=== PATIENT | female | born 1945 | race Caucasian/White ===

== ENCOUNTER 2017-07-20 08:26 | Day surgery (SDC) | payer MEDICARE, BC ==
[~2017-07-20 08:26] MED LIST: Acetaminophen TAB* 325 MG PO PRN; Buffered Lidocaine 0.9% SYRIN* 5 ML/SYR SYRINGE INTRADERM ONE
[2017-07-20] MEDS ORDERED: Midazolam* 1 MG/ML 2 ML VIAL (2 MG) ONE ×2 (10:38→10:46)
[2017-07-20 11:26] VITALS: BP 113/54
[2017-07-20] MEDS ORDERED: Neomycin/Polymy/Dex OPTH.SUSP* MAXITROL 0.1% 5 ML ONE (13:23)
[2017-07-20] MEDS ORDERED: Lidocaine 2% EPI 1:200000 MPF*10-20 ML VIAL ONE (13:23)
[2017-07-20] MEDS ORDERED: Lidocaine 1% MPF* 2 ML VIAL ONE (13:23)
[2017-07-20] MEDS ORDERED: Ketorolac 0.5% OPHTH (NF) 0.5 % 5 ML BTL ONE (13:23)
[2017-07-20] MEDS ORDERED: Cyclopentolate 1% OPTH.SOL* 2 ML BTL ONE (13:23)
[2017-07-20] MEDS ORDERED: Proparacaine 0.5% OPHTH.SOL* 15 ML BTL ONE (13:23)
[2017-07-20] MEDS ORDERED: Povidone Iodine 5% OPTH* 30 ML BTL ONE (13:23)
[2017-07-20] MEDS ORDERED: Phenylephrine 2.5% OPTH.SOL* 2 ML BTL ONE (13:23)
--- NOTE | 2017-07-21 05:55 | OP ---
DATE OF OPERATION: 07/20/17 - [facility] DATE OF : 47 SURGEON: Slade Middleton M.D. PREOPERATIVE DIAGNOSIS: Cataract, left eye POSTOPERATIVE DIAGNOSIS: Cataract, left eye OPERATIVE PROCEDURE: Extracapsular cataract extraction with intraocular lens implant left eye. DESCRIPTION OF PROCEDURE: The patient was brought to the operating room after being given 1/2% Alcaine with epinephrine drops in the preoperative area. The eye was prepped and draped in the usual sterile fashion. Sterile drape and eyelid speculum were placed. Again, topical 1/2% Alcaine with epinephrine was given. A paracentesis incision was made at the 3 o'clock position with the No.75 blade. Clear cornea incision 2.2 x 2.2-mm was created at the 6 o'clock position starting at the anterior limbus using the 2.2-mm keratome. The anterior chamber was irrigated with 0.4 mL of 1% non-preservative intracameral lidocaine and filled with DisCoVisc. A capsulorrhexis was completed using the cystotome and the Utrata forceps. Hydrodissection was performed with balanced salt solution. The lens nucleus was removed with the Phacoemulsification handpiece without incident. Cortex was removed with the irrigation-aspiration handpiece. The capsular bag was re-inflated using DisCoVisc and an [id number] implant was inserted with the shooter. The irrigation-aspiration handpiece was used to remove all residual DisCoVisc. The eye was refilled with balanced salt solution and the wound checked and found to be watertight. Topical Maxitrol drops were given. [id number]/[facility] #: [id number] [facility]
== END 2017-07-20 11:23 | disposition home or self-care (01) ==
LOC: OREAST 08:26
PROVIDERS: ATTEND Specialist
DX: H25.12 Age-related nuclear cataract, left eye (principal); H02.402 Unspecified ptosis of left eyelid; D31.32 Benign neoplasm of left choroid; I10 Essential (primary) hypertension; I42.8 Other cardiomyopathies; E78.2 Mixed hyperlipidemia; E89.0 Postprocedural hypothyroidism; Z87.891 Personal history of nicotine dependence; Z79.82 Long term (current) use of aspirin; F41.9 Anxiety disorder, unspecified; G43.909 Migraine, unspecified, not intractable, without status migrainosus
CPT/HCPCS: A9270-GY; J2250; V2788

== ENCOUNTER 2017-07-27 09:09 | Day surgery (SDC) | payer MEDICARE, BC ==
[~2017-07-27 09:09] MED LIST changes: +Cyclopentolate 1% OPTH.SOL* 2 ML BTL ONE; +Ketorolac 0.5% OPHTH (NF) 0.5 % 5 ML BTL ONE; +Lidocaine 1%* 5 ML VIAL ONE; +Lidocaine 2% EPI 1:200000 MPF*10-20 ML VIAL ONE; +Neomycin/Polymy/Dex OPTH.SUSP* MAXITROL 0.1% 5 ML ONE; +Phenylephrine 2.5% OPTH.SOL* 2 ML BTL ONE; +Povidone Iodine 5% OPTH* 30 ML BTL ONE; +Proparacaine 0.5% OPHTH.SOL* 15 ML BTL ONE; +acetaZOLAMIDE TAB* 250 MG ONE
[2017-07-27] MEDS ORDERED: Midazolam* 1 MG/ML 5 ML VIAL (5 MG) ONE (12:02)
[2017-07-27] MEDS ORDERED: fentaNYL* 50 MCG/ML 2 ML VIAL (100 MCG VIAL) ONE (12:33)
[2017-07-27 12:49] VITALS: BP 103/85
--- NOTE | 2017-07-28 08:52 | OP ---
DATE OF OPERATION: 07/27/17 [facility] DATE OF : 47 SURGEON: Slade Middleton M.D. PREOPERATIVE DIAGNOSIS: Cataract, right. POSTOPERATIVE DIAGNOSIS: Cataract, right. OPERATIVE PROCEDURE: Extracapsular cataract extraction with IOL, intraocular lens implant right eye. DESCRIPTION OF PROCEDURE: The patient was brought to the operating room after being given 1/2% Alcaine with epinephrine drops in the preoperative area. The eye was prepped and draped in the usual sterile fashion. Sterile drape and eyelid speculum were placed. Again, topical 1/2% Alcaine with epinephrine was given. A paracentesis incision was made at the 9 o'clock position with the No.75 blade. Clear cornea incision 2.2 x 2.2-mm was created at the 12 o'clock position starting at the anterior limbus using the 2.2-mm keratome. The anterior chamber was irrigated with 0.4 mL of 1% non-preservative intracameral lidocaine and filled with DisCoVisc. A capsulorrhexis was completed using the cystotome and the Utrata forceps. Hydrodissection was performed with balanced salt solution. The lens nucleus was removed with the Phacoemulsification handpiece without incident. Cortex was removed with the irrigation-aspiration handpiece. The capsular bag was re-inflated using DisCoVisc and an [id number] implant was inserted with the shooter and oriented to the 155-degree meridian. Horizontal reference barrett with the patient in a seated position in the preoperative area. The irrigation-aspiration handpiece was used to remove all residual DisCoVisc. The eye was refilled with balanced salt solution and the wound checked and found to be watertight. Topical Maxitrol drops were given. [id number]/[facility] #: [id number] [facility]
== END 2017-07-27 13:08 | disposition home or self-care (01) ==
LOC: OREAST 09:09
PROVIDERS: ATTEND Specialist
DX: H25.11 Age-related nuclear cataract, right eye (principal); H02.402 Unspecified ptosis of left eyelid; D31.32 Benign neoplasm of left choroid; I10 Essential (primary) hypertension; E78.2 Mixed hyperlipidemia; E89.0 Postprocedural hypothyroidism; I42.2 Other hypertrophic cardiomyopathy; F41.9 Anxiety disorder, unspecified
CPT/HCPCS: A9270-GY; J2250; J3010

== ENCOUNTER 2019-05-02 12:13 | Emergency (ER) | payer MEDICARE, BC ==
--- OUTSIDE RECORDS SUMMARY | 2019-05-02 12:50 | XMS REPORT | Summary of Care ---
:1945 Author Organization [facility] Address [address] [place] [address] Care Team Providers Name Role Phone Luis Bridges MD Primary Care Provider Encounter Details Date Type Department Care Team Description 03/22/2019 Hospital Encounter [facility] Pathology Hypertrophic obstructive Laboratory and PSC at [facility] [address] [facility] [address] [place] [address] Allergies Active Allergy Reactions Severity Noted Date Comments Bactrim Other (See Comments) 08/04/2011 Hypotension, rash Lamotrigine Rash Low 05/07/2013 confusion Sulfamethoxazole-Trimetho 05/20/2014 prim Tetracyclines & Related Swelling 08/04/2011 Tongue Tongue documented as of this encounter (statuses as of 03/23/2019) Medications Medication Sig Dispensed Refills Start Date End Date Status nortriptyline (PAMELOR) 50 Take 50 mg by 0 Active MG capsule mouth nightly 25-50 mg QPM Cholecalciferol (VITAMIN Take 1,000 0 Active D) 1000 UNITS tablet Units by mouth daily. polycarbophil (FIBERCON) Take 625 mg by 0 Active 625 MG tablet mouth daily. Multiple Vitamin (DAILY Take 1 tablet 0 Active PIERRE) per tablet by mouth daily. Calcium Citrate-Vitamin D Take 600 mg by 0 Active (CALCIUM CITRATE + PO) mouth Two Times Daily vitamin B-12 Take 250 mcg 0 Active (CYANOCOBALAMIN) 100 MCG by mouth daily tablet Biotin 1 MG CAPS Take 1 tablet 0 Active by mouth daily Cranberry 1000 MG CAPS Take 1 capsule 0 Active by mouth daily diltiazem (TIAZAC) 180 MG TAKE 1 CAPSULE 90 capsule 3 08/03/2018 Active 24 hr capsule BY MOUTH DAILY 0 buPROPion (WELLBUTRIN SR) TAKE 1 TABLET 180 tablet 3 08/09/2018 Active 200 MG 12 hr tablet BY MOUTH TWICE DAILY losartan (COZAAR) 100 MG TAKE 1 TABLET 90 tablet 1 10/16/2018 Active tablet BY MOUTH DAILY spironolactone (ALDACTONE) TAKE 1 TABLET 90 tablet 3 11/30/2018 Active 25 MG tablet BY MOUTH EVERY DAY Levothyroxine Sodium 150 Take 150 mcg 90 tablet 3 02/14/2019 Active MCG Oral Tablet every Tuesday, (SYNTHROID, , LEVOTHROID)Indications: Tuesday and Postoperative Tuesday hypothyroidism Levothyroxine Sodium 137 Take 137 mcg 50 tablet 3 02/14/2019 Active MCG Oral Tablet every Tuesday, (SYNTHROID, Tuesday and LEVOTHROID)Indications: Tuesday Postoperative hypothyroidism Atorvastatin Calcium 40 MG Take 1 tablet 90 tablet 3 02/14/2019 Active Oral Tablet by mouth every 0 (LIPITOR)Indications: evening Hypercholesterolemia Furosemide 20 MG Oral Take 1 tablet 30 tablet 11 03/22/2019 Active Tablet (LASIX) by mouth daily 1 as needed documented as of this encounter (statuses as of 03/23/2019) Active Problems Problem Noted Date Migraine 08/30/2018 Melanoma in situ 03/23/2018 IPMN (intraductal papillary mucinous neoplasm) 05/16/2017 Overview: MRI 2010 and 2017 unchanged recommend MRI 2019 Hypertrophic obstructive cardiomyopathy 08/31/2015 Overview: Overview: Dr Cintron S/P bariatric surgery 10/21/2014 Overview: Gastric sleeve ([facility]) 10/21/2014 Initially lost 40 lbs but re-gained much of it Hepatic steatosis 04/25/2013 Overview: Noted on ultrasound 04/25/2013 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 related to recurrent pancreatitis 08/12/2015 Triglyceride 209, HDL 46, LDL 95 Postoperative hypothyroidism Overview: S/P left lobectomy (nodule) 1977 There is not a history of irradiation to the head or neck. No LANDIN 08/12/2015 TSH 1.33 Obesity due to excess calories Obstructive sleep apnea hypopnea, mild Overview: Lost weight and no longer uses Osteopenia of spine Overview: Bone mineral density 01/2006 T scores LS spine -1.4, hip +0.2 01/07/2012 -1.6 -1.1 Bone density T scores 11/24/2016: L1-L4 -1.4, (L4 -2.0), left neck -0.9, right neck -1.1, total left -0.1, total right -0.5, left forearm -0.6 Lumbar spine xray: small degree of grade 1 anterolisthesis of L4 over L5 since 01/2012 CT scan Diverticulosis Internal hemorrhoids Depression Malignant melanoma of left lower extremity including hip Overview: Removed September, (lower leg) documented as of this encounter (statuses as of 03/23/2019) Resolved Problems Problem Noted Date Resolved Date Preop cardiovascular exam 07/13/2017 09/20/2018 Idiopathic acute pancreatitis 11/27/2015 07/13/2017 Hair loss 11/24/2015 07/13/2017 History of breast biopsy 01/04/2013 05/16/2017 Dyspepsia 02/08/2012 05/16/2017 Gastritis and duodenitis 02/08/2012 05/16/2017 Lipoma of small intestine 02/08/2012 05/16/2017 Abdominal pain 08/13/2011 05/16/2017 documented as of this encounter (statuses as of 03/23/2019) Immunizations Name Administration Dates Next Due Influenza Quad IM Pres Free (0.5 mL 02/04/2017 dose) Influenza Tri High Dose IM Pres Free 01/12/2019, 12/03/2018, 12/05/2017, >=65YO (FLUZONE HD) 02/05/2016 Pneumococcal Conjugate PCV13 07/08/2014 Pneumococcal Polysaccharide PPV23 07/09/2015 Tdap 07/15/2017 Zoster (Shingles) Live (ZOSTAVAX) 07/08/2016 Zoster (Shingles) Recombinant 06/16/2018, 01/24/2018 (SHINGRIX) documented as of this encounter Social History Tobacco Use Types Packs/Day Years Used Date Former Smoker Cigarettes 0.33 15 Quit: 11/11/2010 Smokeless Tobacco: Never Used Alcohol Use Drinks/Week oz/Week Comments Yes 0-1 Glasses of wine 0.0 maybe 1 glass of wine monthly Alcohol Habits Answer Date Recorded How often do you have a drink containing alcohol? Monthly or less 01/18/2019 How many drinks containing alcohol do you have on a 1 or 2 01/18/2019 typical day when you are drinking? How often do you have six or more drinks on one Never 01/18/2019 occasion? Sex Assigned at Date Recorded Not on file Job Start Date Occupation Industry Not on file Not on file Not on file Travel History Travel Start Travel End No recent travel history available. documented as of this encounter Last Filed Vital Signs Not on filedocumented in this encounter Plan of Treatment Date Type Specialty Care Team Description 04/11/2019 Appointment Radiology 05/29/2019 Procedure visit Gastroenterology Joby Thompson MD [address] [place] [address] [phone] 09/19/2019 Office Visit Internal Medicine Luis Bridges MD [address] [facility] [place] [address] [place] [address] [phone] 11/28/2019 Office Visit Endocrinology Maddie Miles MD [address] [place], [place] [id number] 01/17/2020 Office Visit Cardiology Slade Cintron MD [address] [place] [address] [phone] Health Maintenance Due Date Last Done Comments Osteoporosis Screening 2 2011 yr Breast Cancer Screening 2 03/16/2019 03/16/2017, 03/16/2017, years 03/17/2016, Additional history exists Colon Cancer Screening 10 10/27/2026 10/27/2016 yrs DTaP,Tdap,and Td Vaccines 07/16/2027 07/15/2017, 07/14/2017, (6 - Td) 04/25/2015, Additional history exists MMR Vaccines Discontinued 07/23/2009 Hepatitis A Vaccines Discontinued 04/02/2010, 07/23/2009 IPV Vaccines Aged Out 08/15/2014 No longer eligible based on patient's age to complete this topic Pneumococcal Vaccine: 65+ Completed 07/09/2015, 07/08/2014 Years Pneumococcal Vaccine: Aged Out 07/09/2015, 07/08/2014 No longer eligible Pediatrics (0 to 5 Years) based on patient's age and At-Risk Patients (6 to to complete this topic 64 Years) Hepatitis C Screening (B. Completed 07/08/2016 [id number]) Varicella Vaccines Discontinued 06/16/2018, 02/02/2018, 01/24/2018, Additional history exists Zoster Vaccines Completed 06/16/2018, 02/02/2018, 01/24/2018, Additional history exists Influenza Vaccine Completed 01/12/2019, 12/03/2018, 12/05/2017, Additional history exists HIB Vaccines Aged Out No longer eligible based on patient's age to complete this topic Hepatitis B Vaccines Aged Out No longer eligible based on patient's age to complete this topic documented as of this encounter Goals Goal Patient Goal Associated Recent Patient-Stated? Author Type Problems Progress Weight (lb) < Weight 82.6 kg (182 No Fingar, 90.7 kg (200 lb) Shanda lb) (03/22/2019 3:12 PM EST) documented as of this encounter Procedures Procedure Name Priority Date/Time Associated Diagnosis Comments TSH Routine 03/22/2019 3:57 Hypertrophic Results for this PM EST obstructive procedure are in cardiomyopathy the results section. T4, FREE Routine 03/22/2019 3:57 Hypertrophic Results for this PM EST obstructive procedure are in cardiomyopathy the results section. COMPREHENSIVE Routine 03/22/2019 3:57 Hypertrophic Results for this METABOLIC PANEL PM EST obstructive procedure are in cardiomyopathy the results section. documented in this encounter Results Comprehensive Metabolic Panel (03/22/2019 3:57 PM EST) Albumin 4.8 3.5 - 5.2 g/dL [facility] Pathology Bilirubin, Total 0.3 <1.2 mg/dL [facility]ology Calcium 10.3 (H) 8.8 - 10.2 [facility] mg/dL [facility] Pathology Chloride 96 (L) 98 - 107 mmol/L [facility]ology Creatinine 0.90 0.50 - 0.90 [facility] mg/dL [facility] Glucose 82 70 - 140 mg/dL [facility]ology Alkaline Phosphatase 92 35 - 104 U/L [facility]ology Potassium 5.0 3.4 - 5.1 [facility] mmol/L [facility] Pathology Total Protein 7.1 6.4 - 8.3 g/dL [facility]ology Sodium 134 (L) 136 - 145 [facility] mmol/L [facility] AST/SGO 22 <32 U/L [facility]ology Blood Urea Nitrogen 20 8 - 23 mg/dL [facility]ology Osmolality, Vivek 279 275 - 300 [facility] mosm/kg [facility] BUN/Cre Ratio 22 [facility] Bicarbonate 25 22 - 29 mmol/L [facility] ALT/SGP 29 <33 U/L [facility] Anion Gap 13 8 - 15 mmol/L [facility] A/G Ratio 2.1 [facility]ology GFR Non 62 >60 [facility] Ecuadorean 2008 CDK-EPI mL/min/1.73m2 [facility] GFR 72 >60 [place] [address] CKD-EPI mL/min/1.73m2 [facility] Pathology Specimen Plasma Performing Organization Address City/[facility] Phone Number [facility] [address] [place] [address] [phone] [facility] [address] [place] [address] Pathology T4, free (03/22/2019 3:57 PM EST) Free Thyroxine 1.60 0.93 - 1.70 ng/dL [facility] Pathology Specimen Plasma Performing Organization Address [facility] Phone Number [facility] [address] [place] [address] [facility] [address] [place] [address] Pathology TSH (03/22/2019 3:57 PM EST) TSH 2.250 0.270 - 4.200 u[IU]/mL [facility] Pathology Specimen Plasma Performing Organization Address [facility]ode Phone Number [facility] [address] [place] [address] [facility] [address] [place] [address] Pathology documented in this encounter Visit Diagnoses Diagnosis Hypertrophic obstructive cardiomyopathy documented in this encounter
--- OUTSIDE RECORDS SUMMARY | 2019-05-02 12:50 | XMS REPORT | Summary of Care ---
:1945 Author Organization [facility] Address [address] [place] [address] Care Team Providers Name Role Phone Luis Bridges MD Primary Care Provider Reason for Referral Diagnostic Radiology (Routine) Status Reason Specialty Diagnoses / Referred By Referred To Procedures Contact Contact Authorized Radiology Diagnoses Pancreatic cyst Arif, Hemphill O, Procedures MR Abdomen with and without Contrast [address] [facility] [address] [place] [id number] Email: [email or web address] Reason for Visit Diagnostic Radiology (Routine) Status Reason Specialty Diagnoses / Referred By Referred To Procedures Contact Contact Authorized Radiology Diagnoses Pancreatic cyst Arif, Hemphill O, Procedures MR Abdomen with and without Contrast [address] [facility] [address] [place] [address] Email: [email or web address] Encounter Details Date Type Department Care Team Description 04/11/2019 Hospital Encounter MRI [id number] Pancreatic cyst [address] [place] [id number] Allergies Active Allergy Reactions Severity Noted Date Comments Bactrim Other (See Comments) 08/04/2011 Hypotension, rash Lamotrigine Rash Low 05/07/2013 confusion Sulfamethoxazole-Trimetho 05/20/2014 prim Tetracyclines & Related Swelling 08/04/2011 Tongue Tongue documented as of this encounter (statuses as of 04/12/2019) Medications Medication Sig Dispensed Refills Start Date [...] as of this encounter (statuses as of 04/12/2019) Active Problems Problem Noted Date Migraine 08/30/2018 Melanoma in situ 03/23/2018 IPMN (intraductal papillary mucinous neoplasm) 05/16/2017 Overview: MRI 2010 and 2017 unchanged recommend MRI 2019 Hypertrophic obstructive cardiomyopathy 08/31/2015 Overview: Overview: Dr Cintron S/P bariatric surgery 10/21/2014 Overview: Gastric sleeve ([facility]) 10/21/2014 Initially lost 40 lbs but re-gained [...] as of this encounter (statuses as of 04/12/2019) Resolved Problems Problem Noted Date Resolved Date Preop cardiovascular exam 07/13/2017 09/20/2018 Idiopathic acute pancreatitis 11/27/2015 07/13/2017 Hair loss 11/24/2015 07/13/2017 History of breast biopsy 01/04/2013 05/16/2017 Dyspepsia 02/08/2012 05/16/2017 Gastritis and duodenitis 02/08/2012 05/16/2017 Lipoma of small intestine 02/08/2012 05/16/2017 Abdominal pain 08/13/2011 05/16/2017 documented as of this encounter (statuses as of 04/12/2019) Immunizations Name Administration Dates Next Due Influenza [...] Treatment Date Type Specialty Care Team Description 05/29/2019 Procedure visit Gastroenterology Joby Thompson MD [address] [facility] [address] [place] [address] [phone] 09/19/2019 Office Visit Internal Medicine Luis Bridges MD [address] [facility] [place] [address] [place] [address] [phone] 11/28/2019 Office Visit Endocrinology Maddie Miles MD [address] [place] [address] [phone] 01/17/2020 Office Visit Cardiology Slade Cintron MD [address], [address] [place] [address] [phone] Name Type Priority Associated Diagnoses Date/Time MR Abdomen with and Imaging Routine Pancreatic cyst 04/11/2019 3:08 PM EST without Contrast Name Type Priority Associated Diagnoses Order Schedule MR Abdomen with and Imaging Routine Pancreatic cyst As Needed for 1 without Contrast Occurrences starting 04/11/2019 until 04/11/2019 Health Maintenance Due Date Last Done Comments [...] Years) Hepatitis C Screening (B. Completed 07/08/2016 [id number]) Varicella Vaccines Discontinued 06/16/2018, 02/02/2018, 01/24/2018, Additional [...] PM EST) documented as of this encounter Results Not on filedocumented in this encounter Visit Diagnoses Diagnosis Pancreatic cyst Cyst and pseudocyst of pancreas documented in this encounter Administered Medications Medication Order MAR Action Action Date Dose Rate Site gadobutrol (GADAVIST) contrast Given 04/11/2019 3:00 PM EST 7 mLs injection 8 mL 8 mL (rounded from 8.26 mL = 0.1 mL/kg 82.6 kg), Intravenous, 1 TIME IMAGING, 04/11/19 at 1500, For 1 dose, Imaging Protocol, Do not mix or administer in the same IV line with other medications., glucagon (human recombinant) Given 04/11/2019 2:33 PM EST 1 mg Left Deltoid (GLUCAGEN) injection 1 mg 1 mg, Intramuscular, 1 TIME IMAGING, 04/11/19 at 1430, For 1 dose documented in this encounter
--- OUTSIDE RECORDS SUMMARY | 2019-05-02 12:50 | XMS REPORT | Summary of Care ---
:1945 Author Organization [facility] Address [address] [place] [address] Care Team Providers Name Role Phone Luis Bridges MD Primary Care Provider Reason for Visit Reason Comments Annual Exam Encounter Details Date Type Department Care Team Description 03/22/[address] [facility], [facility] menopausal state (Primary Dx); Internists Luis Castillo MD Reactive depression; [address] [facility] [address] [facility] Essential hypertension; [address] Gastroesophageal reflux disease without esophagitis; [place], [place] Hepatic steatosis; [id number] Hypercholesterolemia; [phone] Hypertrophic obstructive cardiomyopathy; [phone] IPMN (intraductal papillary mucinous neoplasm); (Fax) Obstructive sleep apnea hypopnea, mild; Postoperative hypothyroidism; S/P bariatric surgery Allergies Active Allergy Reactions Severity Noted Date Comments Bactrim Other (See Comments) 08/04/2011 Hypotension, rash Lamotrigine Rash Low 05/07/2013 confusion Sulfamethoxazole-Trimetho 05/20/2014 prim Tetracyclines & Related Swelling 08/04/2011 Tongue Tongue documented as of this encounter (statuses as of 04/08/2019) Medications Medication Sig Dispensed Refills Start End Status Date Date nortriptyline (PAMELOR) Take 50 mg 0 Active 50 MG capsule by mouth nightly 25-50 mg QPM Cholecalciferol (VITAMIN Take 1,000 0 Active D) 1000 UNITS tablet Units by mouth daily. polycarbophil (FIBERCON) Take 625 mg 0 Active 625 MG tablet by mouth daily. Multiple Vitamin (DAILY Take 1 0 Active PIERRE) per tablet tablet by mouth daily. Calcium Citrate-Vitamin Take 600 mg 0 Active D (CALCIUM CITRATE + PO) by mouth Two Times Daily vitamin B-12 Take 250 mcg 0 Active (CYANOCOBALAMIN) 100 MCG by mouth tablet daily Biotin 1 MG CAPS Take 1 0 Active tablet by mouth daily Cranberry 1000 MG CAPS Take 1 0 Active capsule by mouth daily diltiazem (TIAZAC) 180 TAKE 1 90 capsule 3 08/03/ Active MG 24 hr capsule CAPSULE BY 19 020 MOUTH DAILY buPROPion (WELLBUTRIN TAKE 1 180 tablet 3 08/10/19 Active SR) 200 MG 12 hr tablet TABLET BY 19 MOUTH TWICE DAILY losartan (COZAAR) 100 MG TAKE 1 90 tablet 1 10/17/19 Active tablet TABLET BY 19 MOUTH DAILY spironolactone TAKE 1 90 tablet 3 12/01/19 Active (ALDACTONE) 25 MG tablet TABLET BY 19 MOUTH EVERY DAY Levothyroxine Sodium 150 Take 150 mcg 90 tablet 3 02/15/20 Active MCG Oral Tablet every 19 (SYNTHROID, Tuesday, LEVOTHROID)Indications: , Postoperative Tuesday and hypothyroidism Tuesday Levothyroxine Sodium 137 Take 137 mcg 50 tablet 3 02/15/20 Active MCG Oral Tablet every 19 (SYNTHROID, Tuesday, LEVOTHROID)Indications: Tuesday Postoperative and Tuesday hypothyroidism Atorvastatin Calcium 40 Take 1 90 tablet 3 02/15/20 Active MG Oral Tablet tablet by 19 020 (LIPITOR)Indications: mouth every Hypercholesterolemia evening Furosemide 20 MG Oral Take 1 30 tablet 11 03/22/19 Active Tablet (LASIX) tablet by 20 021 mouth daily as needed Famotidine 20 MG Oral Take 1 180 tablet 1 01/23/20 Discontinued Tablet tablet by 020 (Therapy (PEPCID)Indications: mouth Two completed) Gastroesophageal reflux Times Daily disease without esophagitis Hydroquinone 4 % APPLY ON 0 12/23/19 Discontinued External Cream BROWN SPOTS (Therapy ONLY completed) documented as of this encounter (statuses as of 04/08/2019) Active Problems Problem Noted Date Migraine 08/30/2018 Melanoma in situ 03/23/2018 IPMN (intraductal papillary mucinous neoplasm) 05/16/2017 Overview: MRI 2010 and 2018 unchanged recommend MRI 2019 Hypertrophic obstructive cardiomyopathy 08/31/2015 Overview: Overview: Dr Cintron S/P bariatric surgery 10/21/2014 Overview: Gastric sleeve ([facility]) 10/21/2014 Initially lost 40 lbs but [...] as of this encounter (statuses as of 04/08/2019) Resolved Problems Problem Noted Date Resolved Date Preop cardiovascular exam 07/13/2017 09/20/2018 Idiopathic acute pancreatitis 11/27/2015 07/13/2017 Hair loss 11/24/2015 07/13/2017 History of breast biopsy 01/04/2013 05/16/2017 Dyspepsia 02/08/2012 05/16/2017 Gastritis and duodenitis 02/08/2012 05/16/2017 Lipoma of small intestine 02/08/2012 05/16/2017 Abdominal pain 08/13/2011 05/16/2017 documented as of this encounter (statuses as of 04/08/2019) Immunizations Name Administration Dates Next Due Influenza [...] of this encounter Last Filed Vital Signs Vital Sign Reading Time Taken Comments Blood Pressure 112/60 03/22/2019 3:12 PM EST Pulse 74 03/22/2019 3:12 PM EST Temperature 36.4 03/22/2019 3:12 PM EST C (97.6 F) Respiratory Rate 16 03/22/2019 3:12 PM EST Oxygen Saturation 99% 03/22/2019 3:12 PM EST Inhaled Oxygen Concentration - - Weight 82.6 kg (182 lb) 03/22/2019 3:12 PM EST Height 154.9 cm (5' 1") 03/22/2019 3:12 PM EST Body Mass Index 34.39 03/22/2019 3:12 PM EST documented in this encounter Progress Notes Gordon Verdugo - 03/22/2019 3:00 PM EST Subjective: Patient ID: Viviana Holden is a 74 y.o. female Viviana Holden is a 74 y.o. female with the following Problems and Medications. Patient Active Problem List Diagnosis GERD (gastroesophageal reflux disease) Cyst and pseudocyst of pancreas Essential hypertension Right knee DJD Hypertrophic obstructive cardiomyopathy Hypercholesterolemia Postoperative hypothyroidism Obesity due to excess calories Obstructive sleep apnea hypopnea, mild Osteopenia of spine Hepatic steatosis Diverticulosis Internal hemorrhoids Depression S/P bariatric surgery IPMN (intraductal papillary mucinous neoplasm) Malignant melanoma of left lower extremity including hip Migraine Melanoma in situ Current Outpatient Medications Medication Sig Dispense Refill Atorvastatin Calcium 40 MG Oral Tablet (LIPITOR) Take 1 tablet by mouth every evening 90 tablet 3 Biotin 1 MG CAPS Take 1 tablet by mouth daily buPROPion (WELLBUTRIN SR) 200 MG 12 hr tablet TAKE 1 TABLET BY MOUTH TWICE DAILY 180 tablet 3 Calcium Citrate-Vitamin D (CALCIUM CITRATE + PO) Take 600 mg by mouth Two Times Daily Cholecalciferol (VITAMIN D) 1000 UNITS tablet Take 1,000 Units by mouth daily. Cranberry 1000 MG CAPS Take 1 capsule by mouth daily diltiazem (TIAZAC) 180 MG 24 hr capsule TAKE 1 CAPSULE BY MOUTH DAILY 90 capsule 3 Levothyroxine Sodium 137 MCG Oral Tablet (SYNTHROID, LEVOTHROID) Take 137 mcg every Tuesday, Tuesday and Tuesday 50 tablet 3 Levothyroxine Sodium 150 MCG Oral Tablet (SYNTHROID, LEVOTHROID) Take 150 mcg every Tuesday, , Tuesday and Tuesday 90 tablet 3 losartan (COZAAR) 100 MG tablet TAKE 1 TABLET BY MOUTH DAILY 90 tablet 1 Multiple Vitamin (DAILY PIERRE) per tablet Take 1 tablet by mouth daily. nortriptyline (PAMELOR) 50 MG capsule Take 50 mg by mouth nightly 25-50 mg QPM polycarbophil (FIBERCON) 625 MG tablet Take 625 mg by mouth daily. spironolactone (ALDACTONE) 25 MG tablet TAKE 1 TABLET BY MOUTH EVERY DAY 90 tablet 3 vitamin B-12 (CYANOCOBALAMIN) 100 MCG tablet Take 250 mcg by mouth daily Furosemide 20 MG Oral Tablet (LASIX) Take 1 tablet by mouth daily as needed 30 tablet 11 No current facility-administered medications for this visit. HPI Her family history includes Cancer (age of onset: 62) in her cousin; Cancer ( age of onset: 93) in her mother; Dementia in her mother; Diabetes type II in her paternal aunt; Heart disease in her father;Hypertension in her mother; Other in her father; Stroke in her mother; Urolithiasis in her son. Viviana reports that she quit smoking about 8 years ago. Her smoking use included cigarettes. She has a 4.95 pack-year smoking history. She has never used smokeless tobacco. She reports current alcohol use. She reports that she does not use drugs. Patient in seen for her annual exam. She is doing well today and reports some intentional weight loss - which she is pleased with. She attributes her success partially to the "lose it" vicky. She would like to lose 30 pounds in total with a goal weight of 152 pounds. She brought a letter from Dr. Thompson of GI concerning a future MRI scheduled with GI for April 2019. She inquired about the advantages of an MRI with contrast. Her last colonoscopy was done in [address] Marcano. Results were unremarkable. Repeat colonoscopy was recommended for 2026. She follows with Dr. Cintron of cardiology for hypertension and hyperlipidemia. She takes lipitor 40 mg daily, losartan 100 mg daily, and diltiazem 180 mg daily. She is in good spirits and plans on travelling to [place] and [place] this year. She travels to [place] frequently to visit her grandchildren. She reports some lower extremity swelling while travelling. She is agreeable to trying lasix for this problem. Review of Systems Sleep and mood are good. No HEENT complaints. Good exercise capacity without any chest pain or abnormal SOB, no orthopnea or PND. No digestive issues without GERD, constipation or diarrhea. No complaints. No neuro complaints. Lower extremity swelling with travel. No other musculoskeletal concerns. All other systems are reviewed and are negative. Objective: Physical Exam Vitals signs reviewed and are normal HEENT - EOMI and eyes normal without icterus Neck is supple with no lymphadenopathy, no thyroid enlargement or nodules Normal carotid upstroke CHEST - CTA with no rales or wheezing CARDIAC - Regular S1, S2 without M/R/G ABDOMEN - soft non tender, non distended, no HSM, nl BS EXTREMITIES - symmetric 2+ peripheral pulses in wrist and ankles, no edema PSYCH - Nl behavior and mood MUSCULOSKELETAL - no abnormal joint findings or spine misalignment NEURO - normal motor and sensory exam, reflexes symmetric, no cerebellar signs SKIN - Examined with no findings suspicious for neoplasm on face Assessment: Plan: Viviana was seen today for annual exam. Diagnoses and all orders for this visit: Asymptomatic menopausal state Reactive depression This patient is here today for follow up of their depression. Overall this pt is doing well with improvement of their symptoms. We talked about the normal history of depression. Today I find the patient to be well Plan - We discussed making no changes in the meds. Essential hypertension This patient is doing well on medical therapy without any evidence of end organ disease. Specifically no CHF or anginal symptoms. We reviewed the natural history of HTN and the anticipated rise over time necessitating changes in the meds. I've asked the pt to periodically check their BP for additional surveillance. I've also reinforced exercise, wt loss and a low sodium diet. Pt should have yearly eye exams. Continue losartan 100 mg daily and diltiazem 180 mg daily. BP Readings from Last 3 Encounters: 03/22/19 112/60 02/14/19 134/68 01/18/19 146/90 Gastroesophageal reflux disease without esophagitis This patient is doing well with no red flag symptoms such as food sticking or weight loss. I reinforced lifestyle recommendations such as moderating caffeine intake and small frequent meals. Hepatic steatosis Encouraged weight loss Hypercholesterolemia This patient is doing well on statin therapy with no evidence of end organ disease. Specifically no angina, CHF, stroke symptoms or claudication. No symptoms of myositis. We will continue to followan aggressive primary prevention strategy. Pt is due today for their 6 month labs. I encouraged daily exercise, low sodium diet and the goal of having a normal BMI. Continue lipitor 40 mg daily. Hypertrophic obstructive cardiomyopathy - TSH; Future - T4, free; Future - Comprehensive Metabolic Panel; Future Followed by cardiology. Routine blood work today. IPMN (intraductal papillary mucinous neoplasm) Continue to follow with imaging Obstructive sleep apnea hypopnea, mild pt has been compliant with CPAP masks. We talked about the natural history of untreated sleep apnea and reinforced compliance. He has no clinical features of pulmonary hypertension or cognitive dysfunction or mood disorder. Postoperative hypothyroidism Continue synthroid as directed. pt is clinically euthyroid and compliant with meds. Discussed the natural history of hypothyroidism and the symptoms associated with low and high levels. Pt will get TSH and FT4 today and we'll adjust levothyroxine dose. If no changes we'll continue to monitor on a q6 months basis. All questions were answered. Lab Results Component Value Date TSH 2.250 03/22/2019 S/P bariatric surgery This health issue is stable and clinically quiet at this time. Other orders - Furosemide 20 MG Oral Tablet (LASIX); Take 1 tablet by mouth daily as needed Starting lasix prn for lower extremity swelling during travel. Goals Addressed None Immunization History Administered Date(s) Administered Influenza Quad IM Pres Free (0.5 mL dose) 02/04/2017 Influenza Tri High Dose IM Pres Free >=65YO (FLUZONE HD) 02/05/2016, 12/05/2017, 12/03/2018, 01/12/2019 Pneumococcal Conjugate PCV13 07/08/2014 Pneumococcal Polysaccharide PPV23 07/09/2015 Tdap 07/15/2017 Zoster (Shingles) Live (ZOSTAVAX) 07/08/2016 Zoster (Shingles) Recombinant (SHINGRIX) 01/24/2018, 06/16/2018 Health Maintenance Topic Date Due Osteoporosis Screening 2 yr 2011 Breast Cancer Screening 2 years 03/16/2019 Colon Cancer Screening 10 yrs 10/27/2026 DTaP,Tdap,and Td Vaccines (6 - Td) 07/16/2027 Pneumococcal Vaccine: 65+ Years Completed Influenza Vaccine Completed Zoster Vaccines Completed Hepatitis C Screening (B. [id number]) Completed Pneumococcal Vaccine: Pediatrics (0 to 5 Years) and At-Risk Patients (6 to 64 Years) Aged Out HIB Vaccines Aged Out Hepatitis B Vaccines Aged Out IPV Vaccines Aged Out Hepatitis A Vaccines Discontinued MMR Vaccines Discontinued Varicella Vaccines Discontinued Follow up in [address] Bridges obtained and performed the history, physical exam and assessment and plan elements that were entered into the chart by me. Scribed by Gordon Verdugo for Luis Bridges M.D. on 03/22/19 at 3:39 PM. This patient encounter was documented by our scribe. I've reviewed the note and agree with the details of that note. Jorge Bridges MD FACP documented in this encounter Plan of Treatment Date Type Specialty Care Team Description 04/11/2019 Appointment Radiology 05/29/2019 Procedure visit Gastroenterology Joby Thompson MD [address] [facility] [address] [place] [address] [phone] 09/19/2019 Office Visit Internal Medicine Luis Bridges MD [address] [facility] [place] [address] [phone] 11/28/2019 Office Visit Endocrinology Maddie Miles MD [address] [place], [place] [id number] 01/17/2020 Office Visit Cardiology Slade Cintron MD [address] [place], [place] [id number] Health Maintenance Due Date Last Done Comments [...] Years) Hepatitis C Screening (B. Completed 07/08/2016 [id number]) Varicella Vaccines Discontinued 06/16/2018, 02/02/2018, 01/24/2018, Additional [...] EST) documented as of this encounter Results Comprehensive Metabolic Panel (03/22/2019 3:57 PM EST) Albumin 4.8 3.5 - 5.2 g/dL [facility] Bilirubin, Total 0.3 <1.2 mg/dL [facility] Calcium 10.3 (H) 8.8 - 10.2 [facility] mg/dL [facility] Chloride 96 (L) 98 - 107 mmol/L [facility] Creatinine 0.90 0.50 - 0.90 [facility] mg/dL [facility] Glucose 82 70 - 140 mg/dL [facility] Alkaline Phosphatase 92 35 - 104 U/L [facility] Potassium 5.0 3.4 - 5.1 [facility] mmol/L [facility] Total Protein 7.1 6.4 - 8.3 g/dL [facility] Sodium 134 (L) 136 - 145 [facility] mmol/L [facility] AST/SGO 22 <32 U/L [facility] Blood Urea Nitrogen 20 8 - 23 mg/dL [facility] Osmolality, Vivek 279 275 - 300 [facility] mosm/kg [facility] BUN/Cre Ratio 22 [facility] Bicarbonate 25 22 - 29 mmol/L [facility] ALT/SGP 29 <33 U/L [facility] Anion Gap 13 8 - 15 mmol/L [facility] A/G Ratio 2.1 [facility] GFR Non 62 >60 [facility] Montserratian 2009 CDK-EPI mL/min/1.73m2 [facility] GFR 72 >60 [facility] 2009 CKD-EPI mL/min/1.73m2 [facility] Specimen Plasma Performing Organization Address City/State/Zipcode Phone Number [facility] [address] [place] [address] [facility] [address] [place] [address] Pathology T4, free (03/22/2019 3:57 PM EST) Free Thyroxine 1.60 0.93 - 1.70 ng/dL [facility] Specimen Plasma Performing Organization Address [facility] Phone Number [facility] [address] [place] [address] [phone] [facility] [address] [place] [address] Pathology TSH (03/22/2019 3:57 PM EST) TSH 2.250 0.270 - 4.200 u[IU]/mL [facility] Specimen Plasma Performing Organization Address City/[facility] Phone Number [facility] [address] [place], [place] [phone] [facility] [address] [place] [address] Pathology documented in this encounter Visit Diagnoses Diagnosis Asymptomatic menopausal state - Primary Asymptomatic postmenopausal status (age-related) (natural) Reactive depression Dysthymic disorder Essential hypertension Unspecified essential hypertension Gastroesophageal reflux disease without esophagitis Esophageal reflux Hepatic steatosis Other chronic nonalcoholic liver disease Hypercholesterolemia Pure hypercholesterolemia Hypertrophic obstructive cardiomyopathy IPMN (intraductal papillary mucinous neoplasm) Neoplasm of unspecified nature of digestive system Obstructive sleep apnea hypopnea, mild Postoperative hypothyroidism Postsurgical hypothyroidism S/P bariatric surgery Bariatric surgery status documented in this encounter
--- NOTE | 2019-05-02 12:56 | UC ---
Cardiac HPI - HPI Summary HPI Summary: 74 y/o female presents to the urgent care accompany by c/o RT side rib pain s/p fall in [facility] on 04/28/2019. She was visiting [facility] w/ family member and she slipped of the sidewalk and she tried to grabbed herself on to her cousins' back, and she landed on her hands and RT side of her body. She though it was a minor injury, but yesterday she woke up w/ RT side anterior rib pain, specially w/ deep breathing and cough. She thinks since over the weekend she was taking Mcarthur which ws Rx for a Dental procedure she had last week her pain was masked. Now with right side rib pain. Pain worse with inhalation and certain movements. Pain w/ deep breathing is 8/10. She took Naproxen PO last night and this morning Tylenol 1000mg PO w/o any improvement of symptoms. Seh is concerned about rib fracture. Pt denies previous injury, SOB, wheezing, dizziness, chest pain, palpitation, abdominal pain, N/V/D, ADAMS, bruises in the area. - History of Current Complaint Stated Complaint: S/P FALL 04/28- RIB PAIN Time Seen by Provider: 05/02/19 12:55 Hx Obtained From: Patient Onset/Duration: Sudden Onset, Lasting Days - 4 days, Still Present, Worse Since - yesterday w/ RT side rib pain s/p fall in [facility] Timing: Constant Initial Severity: Moderate Current Severity: Moderate Pain Intensity: 8 - RT side rib pain Chest Pain Location: Diffuse Character: Sharp/Stabbing Aggravating Factor(s): Movement, Deep Breaths Alleviating Factor(s): Rest, Other - Mcarthur PO Associated Signs & Symptoms: Positive: Negative. Negative: Chest Pain, Vision Changes, Anxiety, Recent Stress, Headaches, Numbness, Tingling, Weakness, Dizziness, SOB, Swelling, Syncope, Fever, Diaphoresis, Nausea/Vomiting, Palpitations, Cough, Hemoptysis, Back Pain, Abdominal Pain, Calf Pain/Swelling - Risk Factors Pulmonary Embolism Risk Factors: Negative Cardiac Risk Factors: Negative Atrial Fibrillation: Negative TAD Risk Factors: Negative - Allergy/Home Medications Allergies/Adverse Reactions: Allergies Allergy/AdvReac Type Severity Reaction Status Date / Time Tetracyclines Allergy Severe tongue Verified 07/27/17 10:09 swelling lamotrigine Allergy Intermediate disorientat Verified 07/27/17 10:09 ion sulfamethoxazole Allergy Severe B.P. Uncoded 07/27/17 10:09 w/Trimethoprim dropped, hospitalized Home Medications: Home Medications Aspirin 81 mg PO EVERY OTHER DAY 02/03/12 [History Confirmed 05/02/19] Bupropion HCl Xl 200 mg PO BID 02/03/12 [History Confirmed 05/02/19] Levothyroxine Sodium 137 mcg PO QAM 02/03/12 [History Confirmed 05/02/19] Losartan Potassium 100 mg PO QAM 02/03/12 [History Confirmed 05/02/19] Nortriptyline CAP* [Nortriptylline CAP*] 50 mg PO SEE INSTRUCTIONS 01/21/14 [ History Confirmed 05/02/19] Diltiazem TAB* [Cardizem 60 MG Tab*] 120 mg PO QPM 06/25/16 [History Confirmed 05/02/19] Biotin 1,000 mcg PO QAM 07/15/17 [History Confirmed 05/02/19] Calcium Carbonate/Vitamin D3 [Calcium 600 + Vit D Tablet] 1 each PO BID [History Confirmed 05/02/19] Cholecalciferol (Vitamin D3) [Vitamin D3] 1,000 unit PO QAM 07/15/17 [History Confirmed 05/02/19] Cyanocobalamin TAB* [Vitamin B12 TAB*] 1,000 mcg PO QAM 07/15/17 [History Confirmed 05/02/19] Multivitamin [Daily Multiple Vitamin] 1 tab PO QAM 07/15/17 [History Confirmed 05/02/19] Spironolactone TAB* [Aldactone TAB 25 MG*] 25 mg PO QPM 07/15/17 [History Confirmed 05/02/19] Acetaminophen [Tylenol Extra Strength] 1,000 mg PO ONCE 05/02/19 [History Confirmed 05/02/19] Atorvastatin* [Lipitor 40 MG*] 40 mg PO DAILY 05/02/19 [History Confirmed ] HYDROcodone/ACETAMIN 5-325 MG* [Mcarthur 5-325 TAB*] 1 tab PO Q8H PRN #9 tab MDD 1g /4h-4g/day 05/02/19 [Rx] PMH/Surg Hx/FS Hx/Imm Hx Previously Healthy: Yes Endocrine History: Hypothyroidism Other Endocrine History: osteopenia Cardiovascular History: Hypertension Other Cardiovascular History: HCM - Surgical History Surgical History: Yes Surgery Procedure, Year, and Place: ,HYSTERECTOMY, APPENDECTOMY, CHOLECYSTECTOMY - Family History Known Family History: Positive: Cardiac Disease, Hypertension, Other - father with glacoma---no history of clotting disorders or early - Social History Occupation: Retired Lives: With Family Alcohol Use: None Substance Use Type: None Smoking Status (MU): Never Smoked Tobacco Amount Used/How Often: smoked for approx 20 years 2-3 cigarettes a day When Did the Patient Quit Smoking/Using Tobacco: 2004 - Immunization History Most Recent Influenza Vaccination: 2016 Most Recent Tetanus Shot: Unsure Most Recent Pneumonia Vaccination: UTD Review of Systems All Other Systems Reviewed And Are Negative: Yes Constitutional: Positive: Negative Skin: Positive: Negative Eyes: Positive: Negative ENT: Positive: Negative Respiratory: Positive: Negative Cardiovascular: Positive: Chest Pain - RT side rib anterior rib pain s/p fall Gastrointestinal: Positive: Negative Genitourinary: Positive: Negative Motor: Positive: Negative Neurovascular: Positive: Negative Musculoskeletal: Positive: Negative Neurological/Mental Status: Positive: Negative Psychological: Positive: Negative Is Patient Immunocompromised?: No Physical Exam - Summary Physical Exam Summary: Vital Signs Reviewed: Yes General: well developed, well nourished obese female sitting in the examining table w/o any apparent distress Eyes: Positive: Conjunctiva Clear - PERRLA, EOMI, fundi grossly normal ENT: Positive: Normal ENT inspection, Hearing grossly normal, Pharynx normal, Nasal congestion - edematous and erythematous nasal mucosa, Nasal drainage - yellowish drainage, TMs normal. Negative: Tonsillar swelling, Tonsillar exudate Neck: Positive: Supple, Nontender, No Lymphadenopathy Respiratory: no orthopnea or dyspnea. Able to speak in full sentences, no retractions or accessory muscle use, no tripod position, stridor, or head bobbing. Positive breath sounds bilaterally. No wheezing,rhonchi, no crackles or rales. Point tenderness over the anterior Ribs 9-10, no echymosis or soft tissue swelling observed Cardiovascular: Positive: RRR, No Murmur, Pulses Normal, Brisk Capillary Refill Abdomen Description: Positive: Nontender, No Organomegaly, Soft. Negative: CVA Tenderness (R), CVA Tenderness (L) Bowel Sounds: Positive: Present Musculoskeletal Exam: Normal Musculoskeletal: Positive: Strength Intact, ROM Intact, No Edema Neurological Exam: Normal Psychological Exam: Normal Skin Exam: Normal Triage Information Reviewed: Yes - Assessment/Plan Course Of Treatment: 74 y/o female presents to the urgent care accompany by c/o RT side rib pain s/p fall in [facility] on 04/28/2019. She was visiting [facility] w/ family member and she slipped of the sidewalk and she tried to grabbed herself on to her cousins' back, and she landed on her hands and RT side of her body. She though it was a minor injury, but yesterday she woke up w/ RT side anterior rib pain, specially w/ deep breathing and cough. She thinks since over the weekend she was taking Mcarthur which ws Rx for a Dental procedure she had last week her pain was masked. Now with right side rib pain. Pain worse with inhalation and certain movements. Pain w/ deep breathing is 8/10. She took Naproxen PO last night and this morning Tylenol 1000mg PO w/o any improvement of symptoms. Seh is concerned about rib fracture. Pt denies previous injury, SOB, wheezing, dizziness, chest pain, palpitation, abdominal pain, N/V/D, ADAMS, bruises in the area. Hx obtained. Pt is hemodynamically stable. RT Rib and Chest X-ray ordered to r/o fracture. Findings: The bones are osteopenic. No displaced rib fracture is identified. There is unchanged dystrophic calcification of the patient's right breast. IMPRESSION: Osteopenia with no displaced rib fracture or pneumothorax. Pt given an Incentive Spirometer to improve lung function and avoid atelectasis. Nurse educated Pt on how to use it. Pt given Mcarthur PO by nurse since Pt requested. Pt tolerated well medication and pain decrease. Pt Rx Mcarthur for few days and also advised to alternated w/ Naproxen PO she has at home. Pt advised to f/u w/ her PCP in 2-3 days for further management on her Rib contusion if not improvement of symptoms. Also advised to avoid strenuous exercise or heavy lifting. D/C instructions explained. Pt understood and agreed w/ plan of care. left clinic ambulating and hemodynamically stable. - Differential Diagnoses - Chest Pain Differential Diagnosis/HQI/PQRI: Acute PR, Chest Wall, GI Disease, Other: - rib fracture - Clinical Impression Provider Diagnosis: Contusion of rib on right side Discharge ED - Sign-Out/Discharge Documenting (check all that apply): Patient Departure - D/c home All imaging exams completed and their final reports reviewed: Yes - Discharge Plan Condition: Stable Disposition: HOME Prescriptions: HYDROcodone/ACETAMIN 5-325 MG* [Mcarthur 5-325 TAB*] 1 tab PO Q8H PRN #9 tab MDD 1g /4h-4g/day PRN Reason: moderate pain Patient Education Materials: Rib Contusion (ED) Referrals: Cyrus CHOW,Luis Camacho [Primary Care Provider] - 2 Days Additional Instructions: 1-Please Mcarthur PO as directed and if pain persist you can take Naproxen PO you have at home as directed after meals to alleviate pain and swelling. rest and avoid strenuous exercise or heavy lifting 2-Please use the Incentive Spirometry as the Nurse explained to improve lung function 3-If symptoms do not improve or worsen please f/u w/ your PCP in 3 days for further evaluation and treatment. - Billing Disposition and Condition Condition: STABLE Disposition: Home
[2019-05-02 13:01] VITALS: BP 130/80
[2019-05-02] MEDS ORDERED: HYDROcodone/ACETAMIN 5-325 MG* 1 TAB PO ONE (13:19)
== END 2019-05-02 14:20 | disposition home or self-care (01) ==
LOC: UCCORT 12:13
DX: S20.211A Contusion of right front wall of thorax, initial encounter (principal); M85.88 Other specified disorders of bone density and structure, other site; Z88.2 Allergy status to sulfonamides; Z88.1 Allergy status to other antibiotic agents; Z88.8 Allergy status to other drugs, medicaments and biological substances; Z79.82 Long term (current) use of aspirin; W19.XXXA Unspecified fall, initial encounter; Y93.01 Activity, walking, marching and hiking; Y92.9 Unspecified place or not applicable
CPT/HCPCS: 99212; G0463